=== PATIENT | female | born 1985 | race Caucasian/White ===

== ENCOUNTER 2022-11-27 05:20 | Inpatient (IN) ==
--- NOTE | 2022-11-18 14:28 | Anesthesiology Consultation ---
Date of Service November 18, 2022 Assessment & Plan (1) Encounter for pre-operative examination: Chart Review Chart Review: surveyor instrument assistant initiated -Infectious Disease screening: Per PAT nursing assessment on 11/18/22. No known infectious disease contacts in past 10 days or current infectious disease symptoms. No recent travel outside the country. History Surgery Operation Date: 11/27/22 07:30 Proposed Procedures p Section (Delivery of Baby Through Abdominal Incision) - Dayami Mcallister MD s with Bilateral Tubal Ligation - Dayami Mcallister MD Height/Weight Height: 5 ft 7 in Weight: 150.593 kg Allergies Allergy/AdvReac Type Severity Reaction Status Date / Time buspirone [From BuSpar] AdvReac Intermediate Headache & Verified 11/18/22 13:42 sleepy Medications Home Medications Medication Instructions Recorded Confirmed Last Taken acyclovir 400 mg tablet 400 mg PO HS 04/18/22 11/18/22 Unknown labetalol 100 mg tablet 100 mg PO BID 04/18/22 11/18/22 Unknown omeprazole 20 mg capsule,delayed 20 mg PO QAM 04/18/22 11/18/22 Unknown release vit no.95-ferrous 1 tab PO QAM 04/18/22 11/18/22 Unknown fumarate 28 mg-folic acid 800 mcg tablet () bupropion HCl 150 mg 24 hr tablet, 150 mg PO QAM 07/01/22 11/18/22 Unknown extended release (Wellbutrin XL) ondansetron HCl 4 mg tablet 4 mg PO Q6H PRN nausea and 07/22/22 11/18/22 Unknown vomiting #30 tabs cholecalciferol (vitamin D3) 25 25 mcg PO QAM 11/18/22 11/18/22 Unknown mcg (1,000 unit) tablet (Vitamin D3) docusate sodium 100 mg tablet 100 mg PO DAILY PRN Constipation 11/18/22 11/18/22 Unknown (Stool Softener) zinc 100 mg tablet 100 mg PO QAM 11/18/22 11/18/22 Unknown Past Medical History Medical History Anxiety and depression Genital herpes Starting on valtrex daily at 36 weeks per OB GERD (gastroesophageal reflux disease) History of anesthesia reaction was extremely itchy after epidural with last delivery (pt states she had just received epidural and then had to have an emergency ) History of COVID-19 2020/2021--mild symptoms, no symptoms now Hypertension On labetalol Interstitial cystitis Morbid obesity with BMI of 50.0-59.9, adult Temporomandibular joint disorder sees chiropractor for this, no bite block/no current issues Past Family History Family History Other No family history of adverse response to anesthesia Past Surgical History Surgical History History of carpal tunnel surgery of right wrist History of colonoscopy History of loop electrical excision procedure (LEEP) History of wisdom tooth extraction under local Hx of section Social History Smoking Status: Former smoker Do You Dip or Chew Tobacco: No Smoking End Date: quit 2015 Hx Alcohol Use: No Hx Substance Use: No substance use type: does not use Testing Electrocardiogram Date: 04/18/[address] with short CT at 80 bpm Abnormal QRST angle, consider primary T wave abnormality Chest X-Ray Date: 04/18/22 FINDINGS: There is no pneumothorax or pleural effusion. No consolidation is identified. There is mild nonspecific interstitial thickening. Cardiac size is at the upper limits of normal. Mediastinal contours are otherwise normal. IMPRESSION: 1. No consolidation to suggest pneumonia. 2. Mild nonspecific interstitial thickening. 3. Top normal cardiac size.
[2022-11-27] MEDS ORDERED: SODIUM CHLORIDE 0.9% 250 ML IV PRN (05:26)
[2022-11-27] MEDS ORDERED: LACTATED RINGER'S 1,000 ML IV SCH ×2 (05:30→09:51)
[2022-11-27] MEDS ORDERED: CITRIC ACID/SODIUM CITRATE 15 ML UDC PO SCH (06:00)
[2022-11-27 06:22] LABS: Basophils # (auto) 0.06 K/uL (0.00-0.20); Basophils % (auto) 0.6 %; Eosinophils # (auto) 0.09 K/uL (0.00-0.50); Eosinophils % (auto) 0.9 %; Hemoglobin 11.5 g/dl (12.0-16.0); Immature Granulocytes # (auto) 0.05 K/uL (0.01-0.20); Immature Granulocytes % (auto) 0.5 %; Lymphocytes # (auto) 2.89 K/uL (1.20-3.40); Lymphocytes % (auto) 29.9 %; Mean Corpuscular Hemoglobin 29.2 pg (25.0-34.0); Mean Corpuscular Hgb Conc 34.8 g/dL (32.0-36.0); Mean Corpuscular Volume 83.8 fL (80.0-100.0); Mean Platelet Volume 9.6 fL (9.4-12.4); Monocytes # (auto) 0.42 K/uL (0.11-0.59); Monocytes % (auto) 4.3 %; Neutrophils # (auto) 6.17 K/uL (1.40-6.50); Neutrophils % (auto) 63.8 %; Platelet Count 268 K/uL (130-400); RDW Standard Deviation 39.3 fL (36.4-46.3); Red Blood Count 3.94 M/uL (4.20-5.40); White Blood Count 9.68 K/ul (4.8-10.8)
[2022-11-27] MEDS ORDERED: PHENYLEPHRINE HCL 10 MG/ML VIAL ONE (07:02)
[2022-11-27] MEDS ORDERED: MoRPHine SULFATE PF 1 MG/ML 10 ML AMP/VIAL ONE (07:02)
[2022-11-27] MEDS ORDERED: fentaNYL citrate PF 100 MCG/2 ML VIAL ONE (07:02)
[2022-11-27] MEDS ORDERED: KETOROLAC 30 MG/ML VIAL ONE (07:02)
[2022-11-27] MEDS ORDERED: ONDANSETRON INJ 2 MG/ML 2 ML VIAL ONE (07:02)
[2022-11-27] MEDS ORDERED: OXYTOCIN 10 UNITS/ML VIAL ONE ×2 (07:02→09:01)
--- NOTE | 2022-11-27 07:40 | History & Physical Bridge Note ---
Date of Service November 27, 2022 History & Physical Bridge Note I have examined the patient, reviewed the History & Physical and in the interval since the performance of the History & Physical I have noted the following changes of clinical significance: no changes noted
[2022-11-27] MEDS ORDERED: INFLUENZA VIRUS QUADRIVALENT VACCINE (IIV4) 0.5 ML SYR IM ONE (08:00)
[2022-11-27] MEDS ORDERED: NALOXONE HCL 1 MG in SODIUM CHLORIDE 0.9% 1,000 ML IV PRN (08:29)
[2022-11-27] MEDS ORDERED: HYDROmorphone INJ 0.5 MG/0.5 ML SYR IV PRN (08:29)
[2022-11-27] MEDS ORDERED: ONDANSETRON INJ 2 MG/ML 2 ML VIAL IV PRN (08:29)
[2022-11-27] MEDS ORDERED: PROMETHAZINE HCL 6.25 MG in SODIUM CHLORIDE 0.9% 50 ML IV PRN (08:29)
[2022-11-27] MEDS ORDERED: ePHEDrine sulfate 50 MG/ML AMP IV PRN (08:29)
[2022-11-27] MEDS ORDERED: ACETAMINOPHEN 1,000 MG/100 ML VIAL IV PRN (08:29)
[2022-11-27] MEDS ORDERED: NALOXONE HCL 0.08 MG in SYRINGE 1.8 ML IV PRN (08:29)
[2022-11-27] MEDS ORDERED: NALOXONE HCL 0.4 MG/1 ML VIAL/CARP IV PRN (08:29)
[2022-11-27] MEDS ORDERED: diphenhydrAMINE 50 MG/ML VIAL IV PRN (08:29)
[2022-11-27] MEDS ORDERED: NALBUPHINE HCL INJ 10 MG/ML AMP IV PRN (08:29)
[2022-11-27] MEDS ORDERED: LACTATED RINGER'S 500 ML IV PRN (08:29)
[2022-11-27] MEDS ORDERED: MoRPHine SULFATE PF 1 MG/ML 10 ML AMP/VIAL INT SPINAL ONE (08:29)
[2022-11-27] MEDS ORDERED: KETOROLAC 30 MG/ML VIAL IV PRN (08:29)
[2022-11-27] MEDS ORDERED: DC INTRASPINAL MORPHINE SCH (08:30)
[2022-11-27] MEDS ORDERED: SODIUM CHLORIDE 0.9% 1,000 ML IV SCH (08:30)
[2022-11-27] MEDS ORDERED: NO NARCOTICS OR SEDATIVES SCH (08:30)
--- NOTE | 2022-11-27 09:23 | Operative Report ---
PG Post Operative Report Pre & Post Diagnosis Operation Date: 11/27/22 07:30 Prior section x2 Desires sterilization I identified the patient and participated in the time-out.: Yes Procedure Operation Date: 11/27/22 07:30 Repeat low transverse section with tubal ligation Surgeon Dayami Mcallister MD Police Judge Allyn Estimated Blood Loss 600 Findings Consistent with Post-Op Diagnosis Specimens bilateral fallopian tubes Placenta Cord blood Anesthesia Type Spinal Complications none Disposition Accompanied Patient To Recovery: Yes Disposition: L&D Description of Procedure The patient was placed operating table in the supine position with a leftward tilt. She was prepped and draped in standard sterile fashion. The anesthetic was tested and found to be adequate. A time-out was held, identifying correct patient, procedure, positioning and preoperative antibiotics. There were no concerns. A Pfannenstiel skin incision was made with a knife and taken down to the underlying layer of fascia. The fascia was incised in the midline with the knif e and taken out laterally with scissors. The superior edge of the fascial incision was grasped, elevated and dissected off the underlying rectus both superiorly and inferiorly. The muscles were bluntly in the midline. The peritoneum was entered bluntly. The incision was then stretched. An x-Lg Paul retractor was placed. The bladder retractor was placed. The vesicouterine peritoneum was identified, entered with scissors and taken out laterally with scissors. The bladder flap was created digitally. A hysterotomy incision was created transversely in the lower uterine segment, final entry being accomplished in a blunt manner with the rim turning machine operator's fingers. Clear amniotic fluid was encountered. The rim turning machine operator's hand was used to elevate the head to the hysterotomy. The head was delivered using mild fundal pressure and a Kiwi Cup, and the shoulders and body followed without difficulty. The cord was clamped and cut and the was then handed off to the awaiting emergency care attendant. Cord blood was obtained. The placenta was Manually extracted. The uterus was exteriorized and cleared of all clot and debris with moistened laparotomy sponges. The hysterotomy incision was repaired in two layers, the first in a running locked layer, the second in an imbricating layer. The ovaries and tubes were seen to be normal bilaterally. The fallopian tubes were excised using a handheld mini ligasure. The uterus was gently replaced in the abdomen, and the gutters were cleared of clot and debris. A final inspection of the hysterotomy and mesosalpinges revealed good hemostasis. The rectus muscles were allowed to reapproximate naturally. The fascia was then reapproximated with 1 Vicryl in a running nonlocked manner. The fascia was examined and found to be free of defect following closure. The subcutaneous tissue was copiously irrigated and reapproximated with 0-chromic, then the skin edges were closed with 4-0 monocryl in a subcuticular fashion. A DUSTIN dressing was applied. The ro was found to be draining clear yellow urine at completion of the procedure. I attest to the content of the Intraoperative Record and any orders documented therein. Any exceptions are noted below. I attest to the content of the Intraoperative Record and any orders documented therein. Any exceptions are noted below. OB Procedure Charges [id number] Add on Tubal for C/S
[2022-11-27] MEDS ORDERED: DIPHTHERIA/TETANUS/PERTUSSIS Vaccine (Tdap, Age 7+yrs) 0.5mL SYR/VL IM ONE (09:51)
[2022-11-27] MEDS ORDERED: BENZOCAINE 20% SPRY 85 APPLN/85 GM CAN EXT PRN (09:51)
[2022-11-27] MEDS ORDERED: HYDROCORTISONE ACETATE 25 MG SUPP PR PRN (09:51)
[2022-11-27] MEDS ORDERED: MAGNESIUM HYDROXIDE SUSP 30 ML UDC PO PRN (09:51)
[2022-11-27] MEDS ORDERED: SENNA 8.6 MG TAB PO PRN (09:51)
[2022-11-27] MEDS ORDERED: OXYTOCIN 30 UNITS in LACTATED RINGER'S 1,000 ML IV SCH (10:00)
--- NOTE | 2022-11-27 12:07 | Anesthesiology Progress Note ---
Date of Service November 27, 2022 Anesthesia Post Procedure Vital Signs Vital Signs: Temp Pulse Resp BP Pulse Ox 11/27/22 07:50 98.1 F 81 20 129/72 11/27/22 05:45 98.4 F 18 11/27/22 12:03 75 100 11/27/22 11:58 68 100 11/27/22 11:53 66 100 11/27/22 11:48 70 98 11/27/22 11:49 67 128/67 11/27/22 11:43 79 99 11/27/22 11:38 75 98 11/27/22 11:34 71 137/66 11/27/22 11:33 70 99 11/27/22 11:28 71 98 11/27/22 11:23 69 99 11/27/22 11:18 75 98 11/27/22 11:13 74 98 11/27/22 11:08 68 99 11/27/22 11:03 70 99 11/27/22 11:04 68 131/61 11/27/22 10:58 73 98 11/27/22 10:53 67 98 11/27/22 10:48 74 98 11/27/22 10:49 77 131/60 11/27/22 10:43 72 98 11/27/22 10:38 68 98 11/27/22 10:33 76 98 11/27/22 10:34 68 137/65 11/27/22 10:28 72 98 11/27/22 10:23 76 97 11/27/22 10:18 73 97 11/27/22 10:19 73 119/70 11/27/22 10:13 71 97 11/27/22 10:08 75 99 11/27/22 10:03 70 98 11/27/22 09:58 72 127/65 91 11/27/22 09:53 70 99 11/27/22 09:49 76 125/71 11/27/22 09:48 72 100 11/27/22 09:45 81 93 11/27/22 09:43 72 98 11/27/22 09:38 100 11/27/22 09:38 71 11/27/22 09:38 71 128/61 11/27/22 09:33 74 100 11/27/22 09:28 98 11/27/22 09:28 72 11/27/22 09:28 76 130/70 11/27/22 09:23 78 98 11/27/22 09:18 66 128/58 L 100 11/27/22 07:49 98.1 F 81 20 129/72 11/27/22 05:38 98.4 F 87 18 142/86 H Transfer of Care Handoff Completed per policy Notes Mental Status: alert / awake / arousable and participated in evaluation Patient Amnestic to Procedure: No Nausea / Vomiting: adequately controlled Pain: adequately controlled Airway Patency, RR, SpO2: stable & adequate BP & HR: stable & adequate Hydration State: stable & adequate Neuraxial Anesthesia: was administered and sensory block is resolving Anesthetic Complications: no major complications apparent and Pt Satisfied with anesthetic care
[2022-11-27] MEDS ORDERED: LIDOCAINE 1% LOCAL 20 ML VIAL ONE (12:10)
--- NOTE | 2022-11-27 12:20 | Obstetrical Progress Note ---
Date of Service November 27, 2022 Assessment & Plan Admission and Anticipated Discharge Date Admission Date: November 27, 2022 Subjective Called to patient's room twice to evaluate DUSTIN dressing. At first, there was a small area of bright red blood on DUSTIN in the middle of the dressing. This was marked, and plans for reevaluation. Then, notified by RN that the DUSTIN dressing tubing had come out from the battery pack. On recheck, the DUSTIN dressing was mostly soaked with dark red blood. I removed DUSTIN, and incision had oozing of dark blood throughout with expression. No obvious active bright red bleeding, however the skin was pulling open. I discussed with patient - I recommended re-closure of the incision, and discussed return to OR vs closure at bedside. She does not want to go to OR, but was agreeable to omar. 1% lidocaine infused at the incision, and the incision was reapproximated with omar. Sterile procedure maintained. Excellent hemostasis after watching for multiple minutes. Telfa and abdominal dressing placed, and pressure dressing. Patient declined replacement of DUSTIN dressing. Will continue to monitor. Results & Data Vital Signs (Past 12 Hours) Vital Signs Temp Pulse Resp BP Pulse Ox 11/27/22 07:50 36.7 C 81 20 129/72 11/27/22 05:45 36.9 C 18 11/27/22 12:13 77 99 11/27/22 12:08 79 98 11/27/22 12:03 75 100 11/27/22 11:58 68 100 11/27/22 11:53 66 100 11/27/22 11:48 70 98 11/27/22 11:49 67 128/67 11/27/22 11:43 79 99 11/27/22 11:38 75 98 11/27/22 11:34 71 137/66 11/27/22 11:33 70 99 11/27/22 11:28 71 98 11/27/22 11:23 69 99 11/27/22 11:18 75 98 11/27/22 11:13 74 98 11/27/22 11:08 68 99 11/27/22 11:03 70 99 11/27/22 11:04 68 131/61 11/27/22 10:58 73 98 11/27/22 10:53 67 98 11/27/22 10:48 74 98 11/27/22 10:49 77 131/60 11/27/22 10:43 72 98 11/27/22 10:38 68 98 11/27/22 10:33 76 98 11/27/22 10:34 68 137/65 11/27/22 10:28 72 98 11/27/22 10:23 76 97 11/27/22 10:18 73 97 11/27/22 10:19 73 119/70 11/27/22 10:13 71 97 11/27/22 10:08 75 99 11/27/22 10:03 70 98 11/27/22 09:58 72 127/65 91 11/27/22 09:53 70 99 11/27/22 09:49 76 125/71 11/27/22 09:48 72 100 11/27/22 09:45 81 93 11/27/22 09:43 72 98 11/27/22 09:38 100 11/27/22 09:38 71 11/27/22 09:38 71 128/61 11/27/22 09:33 74 100 11/27/22 09:28 98 11/27/22 09:28 72 11/27/22 09:28 76 130/70 11/27/22 09:23 78 98 11/27/22 09:18 66 128/58 L 100 11/27/22 07:49 36.7 C 81 20 129/72 11/27/22 05:38 36.9 C 87 18 142/86 H PG Care Time/CCT Total # of Minutes Spent Total Time Spent with Patient: Total time spent is greater than 50% in coordination of care (as documented) at patient's floor/unit and/or counseling patient: Coding Level of Care Code None Diagnoses
[2022-11-27] MEDS: SIMETHICONE 80 MG CHEW PO SCH ×3 (14:23→21:00)
[2022-11-27] MEDS: ceFAZolin 2000MG 2,000 MG/15 ML SYR IV SCH ×2 (16:35→23:59)
[2022-11-27] MEDS: DOCUSATE SODIUM 100 MG CAP PO SCH (21:00)
[2022-11-27] MEDS: NYSTATIN CR 15 GM TUBE EXT SCH (21:00)
[2022-11-27] MEDS: LABETALOL HCL 100 MG TAB PO SCH (21:00)
[2022-11-27] MEDS: ACYCLOVIR 400 MG TAB PO SCH (21:00)
[2022-11-28] MEDS ORDERED: ONDANSETRON INJ 2 MG/ML 2 ML VIAL IV PRN (02:29)
[2022-11-28] MEDS ORDERED: diphenhydrAMINE 50 MG/ML VIAL IV PRN (02:29)
[2022-11-28] MEDS ORDERED: diphenhydrAMINE Capsule 25 MG CAP PO PRN (02:29)
[2022-11-28] MEDS ORDERED: PROMETHAZINE HCL 25 MG in SODIUM CHLORIDE 0.9% 50 ML IV PRN (02:29)
[2022-11-28] MEDS ORDERED: MEPERIDINE HCL 50 MG/ML CARP IV PRN (02:29)
[2022-11-28] MEDS ORDERED: KETOROLAC 30 MG/ML VIAL IV PRN (02:29)
--- NOTE | 2022-11-28 05:39 | Obstetrical Progress Note ---
Date of Service November 28, 2022 Assessment & Plan (1) Encounter for care and examination after delivery: Plan s/p C section day 1 Vital signs reviewed and WNL Blood Type: O+, Rubella immune Encourage ambulation Patient doing well clinically Monitor and control pain with Motrin PRN, Resume regular diet, Monitor lochia Encourage Admission and Anticipated Discharge Date Admission Date: November 27, 2022 Supervising Physician Co-Signing Physician Notes Resident Physician Supervision Note: I interviewed and examined the patient. Discussed with Dr. Shady Ordoñez and agree with findings and plan as documented in the note. Any exceptions or clarifications are listed here: POD#1 doing well. No bleeding through bandage. OK to take off in shower today. Routine postop care. Documented By: Genoveva Fletcher, Subjective 37 yo pod 1 s/p and BTL Ambulation: ambulating normally Voiding: no voiding problems Passing Gas:: Yes Diet Tolerance:: regular diet Lochia:: Small Feeding Type:: bottle feeding, trying today Current Pain Level: 4/10, controlled with pain meds Resting comfortably this AM in NAD. Denies OROZCO, CP, SOB, N/V/D, LE pain/swelling. Review of Systems Review of Systems: All systems reviewed & are unremarkable except as noted in HPI & below Physical Exam Physical Exam: General: patient resting comfortably, NAD, non-toxic in appearance, AA&O x 4, answers questions appropriately. Skin: warm, dry, intact HEENT: NC/AT, anicteric sclera, conjunctiva without injection, moist mucus membranes. Heart: +S1/S2, regular, no m/r/g Lungs: equal air entry bilaterally, no rales/rhonchi/wheezes Abd: +BS, soft, NT/ND, uterine fundus firm at umbilicus, incision cover with bandage clean, no blood noticed Ext: warm, no clubbing/cyanosis or edema, Nancy's neg. Neuro: nonfocal, patient AA&O x 4, speech intact, no facial droop, moving all extremities on command. Results & Data Vital Signs (Past 12 Hours) Vital Signs Temp Pulse Resp BP Pulse Ox O2 Del Method 11/28/22 03:10 36.8 C 73 20 114/77 98 Room Air 11/28/22 02:00 18 98 11/28/22 01:00 18 98 11/27/22 23:00 18 97 11/27/22 22:00 18 98 11/27/22 21:00 18 99 11/27/22 20:00 18 100 11/27/22 19:00 18 100 11/28/22 00:00 18 100 11/27/22 23:57 36.6 C 69 18 125/83 100 Room Air 11/27/22 19:27 36.9 C 75 20 125/84 100 Room Air 11/27/22 18:30 16 99 Resident Activity Tracking Resident Involvement: Resident Care Provided Care Provided: OB Delivery
[2022-11-28 06:50] LABS: Basophils # (auto) 0.04 K/uL (0.00-0.20); Basophils % (auto) 0.4 %; Eosinophils # (auto) 0.27 K/uL (0.00-0.50); Eosinophils % (auto) 2.5 %; Hematocrit (blood only) 31.9 % (37.0-47.0); Hemoglobin 11.1 g/dl (12.0-16.0); Immature Granulocytes # (auto) 0.04 K/uL (0.01-0.20); Immature Granulocytes % (auto) 0.4 %; Lymphocytes # (auto) 2.47 K/uL (1.20-3.40); Mean Corpuscular Hemoglobin 29.4 pg (25.0-34.0); Mean Corpuscular Hgb Conc 34.8 g/dL (32.0-36.0); Mean Corpuscular Volume 84.4 fL (80.0-100.0); Mean Platelet Volume 9.8 fL (9.4-12.4); Monocytes # (auto) 0.43 K/uL (0.11-0.59); Neutrophils % (auto) 69.7 %; Platelet Count 253 K/uL (130-400); RDW Coefficient of Variation 13.2 % (11.5-14.5); RDW Standard Deviation 40.8 fL (36.4-46.3); Red Blood Count 3.78 M/uL (4.20-5.40); White Blood Count 10.75 K/ul (4.8-10.8)
[2022-11-28] MEDS: LABETALOL HCL 100 MG TAB PO SCH ×2 (08:10→21:04)
[2022-11-28] MEDS: ceFAZolin 2000MG 2,000 MG/15 ML SYR IV SCH ×2 (08:10→08:48)
[2022-11-28] MEDS: buPROPion XL 150 MG TABCR PO SCH (08:10)
[2022-11-28] MEDS: SIMETHICONE 80 MG CHEW PO SCH ×4 (08:11→21:04)
[2022-11-28] MEDS: IBUPROFEN 600 MG TAB PO PRN ×3 (08:11→16:46)
[2022-11-28] MEDS: FERROUS SULFATE 325 MG TAB PO SCH (08:11)
[2022-11-28] MEDS: PRENATAL VITAMIN 1 TAB PO SCH (08:11)
[2022-11-28] MEDS: DOCUSATE SODIUM 100 MG CAP PO SCH ×2 (08:15→21:04)
[2022-11-28] MEDS: NYSTATIN CR 15 GM TUBE EXT SCH (08:15)
[2022-11-28] MEDS ORDERED: bisacodyL 5 MG TABEC PO SCH (20:00)
[2022-11-28] MEDS: oxyCODONE/ACETAMINOPHEN 5mg/325mg TAB PO PRN (20:00)
[2022-11-28] MEDS: ACYCLOVIR 400 MG TAB PO SCH (21:05)
[2022-11-29] MEDS: oxyCODONE/ACETAMINOPHEN 5mg/325mg TAB PO PRN ×2 (04:45→09:08)
[2022-11-29] MEDS: IBUPROFEN 600 MG TAB PO PRN ×2 (04:46→09:09)
[2022-11-29 06:59] LABS: Hematocrit (blood only) 29.8 % (37.0-47.0); Hemoglobin 10.2 g/dl (12.0-16.0)
--- NOTE | 2022-11-29 08:46 | Obstetrical Progress Note ---
Date of Service November 29, 2022 Assessment & Plan (1) Encounter for care and examination after delivery: Desires d/c home today, instructions reviewed, staple removal appt late in the coming week. Subjective Ambulation: ambulating normally Voiding: no voiding problems Passing Gas:: Yes Diet Tolerance:: regular diet Lochia:: Small Feeding Type:: breast feeding Physical Exam Constitutional WD/WN, vitals as above Eyes PERRL, conjunctivae normal, anicteric sclerae Neck normal visual inspection Respiratory normal respiratory effort and able to speak in complete sentences; no respiratory distress and no labored breathing Cardiovascular Rate/Rhythm: regular rate and regular rhythm Extremities: no edema Chest (Breasts) Chest: normal inspection of chest Gastrointestinal (Abdomen) Inspection/Auscultation: abdomen normal to inspection Soft, postgravid, omar c/d/i dressing off, mild ecchymoses about 2" superior to incision, no drainage or opening, no erythema Psychiatric A+Ox3, euthymic affect Genitourinary OB Exam Abdomen: + fundal height Fundus: + firm and + relation to umbilicus (fundus just below umbilicus); not tender Results & Data Vital Signs (Past 12 Hours) Vital Signs Temp Pulse Pulse Resp BP Pulse Ox O2 Del Method 11/29/22 07:40 97.9 F 67 20 140/84 99 Room Air 11/29/22 00:35 Room Air 11/28/22 23:06 97.9 F 66 18 127/83 97 Room Air 11/28/22 21:00 98.6 F 83 16 138/88 98 Room Air
[2022-11-29] MEDS: LABETALOL HCL 100 MG TAB PO SCH (09:07)
[2022-11-29] MEDS: PRENATAL VITAMIN 1 TAB PO SCH (09:07)
[2022-11-29] MEDS: SIMETHICONE 80 MG CHEW PO SCH (09:08)
[2022-11-29] MEDS: FERROUS SULFATE 325 MG TAB PO SCH (09:08)
[2022-11-29] MEDS: DOCUSATE SODIUM 100 MG CAP PO SCH (09:08)
[2022-11-29] MEDS: buPROPion XL 150 MG TABCR PO SCH (09:09)
[2022-11-29] MEDS: NYSTATIN CR 15 GM TUBE EXT SCH (09:09)
[2022-11-29] MEDS ORDERED: bisacodyL 10 MG SUPP PR PRN (09:15)
[2022-11-29] MEDS ORDERED: PERCOCET 5/325MG HOMEPACK PO ONE (11:32)
--- NOTE | 2022-12-01 07:54 | Discharge Summary ---
Date of Service December 01, 2022 Admission Exam (Per Admitting) Constitutional WD/WN, vitals as above Eyes PERRL, conjunctivae normal, anicteric sclerae Neck normal visual inspection Respiratory normal respiratory effort and able to speak in complete sentences; no respiratory distress and no labored breathing Cardiovascular Rate/Rhythm: regular rate and regular rhythm Extremities: no edema Chest (Breasts) Chest: normal inspection of chest Gastrointestinal (Abdomen) Inspection/Auscultation: abdomen normal to inspection Psychiatric A+Ox3, euthymic affect Genitourinary OB Exam Abdomen: + fundal height Discharge Data Consultations 11/27/22 05:23 Consult Anesthesiology Stat Procedures Performed Operation Date: 11/27/22 07:30 Actual Procedures p Section in LD - Dayami Mcallister MD Hospital Course (1) Encounter for care and examination after delivery: Desires d/c home today, instructions reviewed, staple removal appt late in the coming week. Supervising Physician Co-Signing Physician Notes Resident Physician Supervision Note: I interviewed and examined the patient. Discussed with Dr. Shady Ordoñez and agree with findings and plan as documented in the note. Any exceptions or clarifications are listed here: POD#1 doing well. No bleeding through bandage. OK to take off in shower today. Routine postop care. Documented By: Genoveva Fletcher DO Coding Level of Care Code None Diagnoses Encounter for care and examination after delivery Z39.2
--- NOTE | 2022-12-14 08:35 | Coding Query ---
CODING QUERY To promote full compliance with coding requirements relating to patient care, provider participation is requested in all cases of can filler uncertainty. Please assist us with the question(s) below: Coding Question(s): Please document weeks of gestation Physician's Response(s): if this was the visit for her ... full term / 3rd trimester Thank you Dayami Monahan Principal Diagnosis: "that condition established after study, to be chiefly responsible for occasioning the admission of the patient to the hospital for care." Co-Existing Principal Diagnosis: "when two or more diagnoses equally meet the criteria for principal diagnosis as determined by the circumstances of admission, diagnostic work up, and/or therapy provided, and the Alphabetic Index, Tabular List, or another coding guideline does not provide sequencing direction, any one of the diagnoses may be sequenced first." "When the physician has documented what appears to be a current diagnosis in the body of the record, but has not included the diagnosis in the final diagnostic statement, the physician should be asked whether the diagnosis should be added." (Source Coding [facility] 2 QTR90. p3-4) EVER
== END 2022-11-29 12:05 | disposition home or self-care (01) | DRG 784 ==
LOC: 4S1 05:20 → 4E2 13:58 → EDSTATUS 11-30 08:50